=== PATIENT | female | born 1960 | race African-American/Black ===

== ENCOUNTER 2019-11-26 06:03 | Inpatient (IN) | payer MEDICARE, MEDICAID ==
[~2019-11-26] VITALS: Ht 157.5 cm; Wt 49.9 kg
[2019-11-26] MEDS ORDERED: ASPIRIN 81MG TABLET PO ONE (06:45)
[2019-11-26] MEDS ORDERED: HYDRALAZINE 20MG/ML VIAL IV ONE (06:45)
[2019-11-26] MEDS ORDERED: NITROGLYCERIN OINT 1GM/INCH UDPKT TD ONE (06:45)
[2019-11-26 06:58] LABS: BASOPHILS % 0.5 % (0.0-2.0); EOSINOPHILS % 0.1 % (0.0-5.0); HEMATOCRIT. 29.5 % (36.0-48.0); HEMOGLOBIN. 9.7 g/dL (12.0-16.0); LYMPHOCYTES % 7.9 % (20.0-50.0); MEAN CORPUSCULAR HEMOGLOBIN 31.5 pg (28.0-32.0); MEAN CORPUSCULAR VOLUME 95.7 fL (81.0-99.0); MEAN PLATELET VOLUME 8.4 fl (7.4-10.4); MONOCYTES % 6.7 % (2.0-8.0); NEUTROPHILS % 84.8 % (40.0-76.0); PLATELET 289 x1000/uL (130-400); RED BLOOD CELL COUNT 3.08 mill/uL (4.2-5.4); RED CELL DISTRIBUTION WIDTH 17.7 % (11.6-14.6)
[2019-11-26 07:06] LABS: CHLORIDE 117 mEq/L (98-107)
[2019-11-26] MEDS ORDERED: CLONIDINE 0.2MG TABLET PO ONE (09:00)
[2019-11-26] MEDS ORDERED: ACETAMINOPHEN 325MG TABLET PO PRN (09:45)
[2019-11-26] MEDS ORDERED: ONDANSETRON HCL 4MG/2ML INJ IV PRN (09:45)
[2019-11-26] MEDS ORDERED: HYDRALAZINE 20MG/ML VIAL IV PRN (09:45)
[2019-11-26] MEDS ORDERED: IPRATROPIUM/ALBUTEROL 0.5-3(2.5)MG/3ML NEB HHN PRN (09:45)
[2019-11-26] MEDS ORDERED: CLONIDINE 0.1MG TABLET PO PRN (09:45)
[2019-11-26] MEDS ORDERED: LABETALOL 5MG/ML SYR 20 MG/4 ML SYRINGE IV NR (09:45)
[2019-11-26] MEDS ORDERED: NIFEDIPINE XL 60MG TAB PO SCH ×2 (09:45→21:00)
[2019-11-26] MEDS ORDERED: CEFTRIAXONE 1 G PREMIX 50 ML IV SCH (11:00)
[2019-11-26] MEDS: LOSARTAN POTASSIUM 50 MG TABLET PO SCH (11:00)
[2019-11-26] MEDS: AZITHROMYCIN 500 MG in DEXT 5% WATER 250 ML IV SCH (11:18)
[2019-11-26] MEDS: FOLIC ACID/VITAMIN B COMP W-C TABLET PO SCH (12:00)
[2019-11-26 12:02] VITALS: BP 137/89
[2019-11-26 13:19] VITALS: BP 137/89
[2019-11-26 16:00] VITALS: BP 148/72
[2019-11-26 20:00] VITALS: BP 141/75
[2019-11-27] VITALS: BP 130/79
[2019-11-27 04:00] VITALS: BP 161/91
[2019-11-27 06:03] LABS: BASOPHILS % 0.6 % (0.0-2.0); EOSINOPHILS % 0.2 % (0.0-5.0); HEMOGLOBIN. 9.4 g/dL (12.0-16.0); LYMPHOCYTES % 14.4 % (20.0-50.0); MEAN CORPUSCULAR HEMOGLOBIN 31.2 pg (28.0-32.0); MEAN CORPUSCULAR VOLUME 93.3 fL (81.0-99.0); MEAN PLATELET VOLUME 8.4 fl (7.4-10.4); MONOCYTES % 9.6 % (2.0-8.0); NEUTROPHILS % 75.2 % (40.0-76.0); PLATELET 272 x1000/uL (130-400); RED CELL DISTRIBUTION WIDTH 17.7 % (11.6-14.6)
[2019-11-27 06:51] LABS: CHLORIDE 110 mEq/L (98-107)
[2019-11-27 08:00] VITALS: BP 160/88
[2019-11-27] MEDS: LOSARTAN POTASSIUM 50 MG TABLET PO SCH (09:46)
[2019-11-27] MEDS: FOLIC ACID/VITAMIN B COMP W-C TABLET PO SCH (09:46)
[2019-11-27 12:00] VITALS: BP 163/92
[2019-11-27] MEDS: AZITHROMYCIN 500 MG in DEXT 5% WATER 250 ML IV SCH (12:59)
[2019-11-27 13:34] LABS: BG CARBOXYHEMOGLOBIN 0.3 % (0.5-1.5); BG DEOXYHEMOGLOBIN 12.3 % (0.0-5.0); BG FRACTION INSPIRED OXYGEN 21; BG HCO3 ACT 25.4 mmol/L (22.0-26.0); BG METHEMOGLOBIN 0.3 % (0.0-1.5); BG OXYGEN SATURATION 87.6 % (92.0-98.5); BG OXYHEMOGLOBIN 87.1 % (94.0-97.0); BG PCO2 35.2 mmHg (35.0-45.0); BG PH 7.476 (7.350-7.450); BG PO2 52.9 mmHg (75.0-100.0); BG SAMPLE SITE RIGHT RADIAL; BG TOTAL HEMOGLOBIN 11.2 g/dL (12.0-18.0); BG VENT MODE ROOM AIR
[2019-11-27] MEDS ORDERED: HYDRALAZINE HCL 50MG TABLET PO SCH (14:00)
[2019-11-27 16:00] VITALS: BP 175/92
[2019-11-27] MEDS ORDERED: CEFTRIAXONE 1 G PREMIX 50 ML IV SCH (16:00)
[2019-11-28] MEDS ORDERED: AZITHROMYCIN 500 MG in DEXT 5% WATER 250 ML IV SCH (12:00)
[2019-11-28] MEDS ORDERED: EPOETIN ALFA 4000UNITS/ML VIAL SUBCUT SCH (21:00)
== END 2019-11-27 18:26 | disposition left against medical advice (07) | DRG 871 ==
LOC: ER 06:03 → 7WST 08:41 → ENRESERV 11:13 → ER 11:40
PROVIDERS: ADMIT Internal Medicine; ATTEND Internal Medicine
PROC: 5A1D70Z Performance of Urinary Filtration, Intermittent, Less than 6 Hours Per Day (ICD-10-PCS; principal; 2019-11-26)
DX: A41.9 Sepsis, unspecified organism (principal); J18.9 Pneumonia, unspecified organism; J96.01 Acute respiratory failure with hypoxia; N18.6 End stage renal disease; I13.2 Hypertensive heart and chronic kidney disease with heart failure and with stage 5 chronic kidney disease, or end stage renal disease; J44.0 Chronic obstructive pulmonary disease with (acute) lower respiratory infection; N25.81 Secondary hyperparathyroidism of renal origin; E87.2 Acidosis; D63.8 Anemia in other chronic diseases classified elsewhere; F17.210 Nicotine dependence, cigarettes, uncomplicated; I50.9 Heart failure, unspecified; I16.0 Hypertensive urgency; E87.8 Other disorders of electrolyte and fluid balance, not elsewhere classified; E11.22 Type 2 diabetes mellitus with diabetic chronic kidney disease; Z99.2 Dependence on renal dialysis; Z82.49 Family history of ischemic heart disease and other diseases of the circulatory system; Z83.3 Family history of diabetes mellitus; Z71.6 Tobacco abuse counseling; Z91.15 Patient's noncompliance with renal dialysis
CPT/HCPCS: 36415; 36600; 71045; 80053; 80061; 82375; 82805; 83735; 83880; 84100; 84443; 84484; 85025; 93005; 93970; 99291; J0360; J0456; J0696; J3490; J7060